=== PATIENT | male | born 1990 | race Hispanic/Latino ===

== ENCOUNTER 2021-06-17 18:23 | Emergency (ER) | payer OTHER ==
[~2021-06-17] VITALS: Ht 157.5 cm; Wt 70.3 kg
[2021-06-17] MEDS ORDERED: 0.9%NACL 1000ML 1,000 ML IV ONE ×2 (19:00→20:01)
[2021-06-17] MEDS ORDERED: METOCLOPRAMIDE 10 MG/2 ML VIAL IVP ONE (19:00)
[2021-06-17] MEDS ORDERED: DiphenhydrAMINE HCL 50 MG/ML VIAL IM ONE (19:00)
[2021-06-17] MEDS ORDERED: ACETAMINOPHEN 500 MG TABLET PO ONE (19:00)
[2021-06-17 19:17] LABS: BASOPHILS % (AUTO) 0.8 % (0.0-5.0); EOSINOPHILS % (AUTO) 1.9 % (0.0-8.0); HEMATOCRIT 45.6 % (42-54); LYMPHOCYTES % (AUTO) 35.5 % (21.0-51.0); MEAN CORPUSCULAR HEMOGLOBIN 31.8 pg (27.0-33.0); MEAN CORPUSCULAR HGB CONC 34.4 g/dL (32.0-36.0); MEAN CORPUSCULAR VOLUME 92.3 fL (79-99); MONOCYTES % (AUTO) 6.8 % (3.0-13.0); NEUTROPHILS % (AUTO) 54.5 % (40.0-77.0); PLATELET COUNT (AUTO) 232 K/uL (130-400); RED BLOOD CELL COUNT(AUTO) 4.94 MIL/uL (4.50-6.20); RED CELL DISTRIBUTION WIDTH 11.7 % (11.0-15.5); WHITE BLOOD COUNT (AUTO) 8.3 K/uL (4.8-10.8)
[2021-06-17 19:33] LABS: POTASSIUM 3.9 mmol/L (3.5-5.1)
[2021-06-17 19:37] LABS: ALBUMIN 4.3 g/dL (3.5-5.0); BILIRUBIN,TOTAL 0.4 mg/dL (0.2-1.0); TOTAL PROTEIN, SERUM 7.6 g/dL (6.0-8.3)
[2021-06-17] MEDS ORDERED: METO10TA41 PO (20:39)
[2021-06-17] MEDS ORDERED: DIPH25 PO (20:39)
[2021-06-17 20:45] VITALS: BP 118/76
== END 2021-06-17 20:49 | disposition home or self-care (01) ==
LOC: EDH 18:23
DX: G43.909 Migraine, unspecified, not intractable, without status migrainosus (principal); T43.225A Adverse effect of selective serotonin reuptake inhibitors, initial encounter; Z79.899 Other long term (current) drug therapy; Y92.89 Other specified places as the place of occurrence of the external cause
CPT/HCPCS: 36415; 80053; 85025; 96361; 96372; 96374; 99284; J1200; J2765; J7030

== ENCOUNTER 2023-04-29 17:39 | Emergency (ER) | payer OTHER ==
[~2023-04-29] VITALS: Ht 157.5 cm; Wt 68.9 kg
[~2023-04-29 17:39] MED LIST: DIPH-1242 PO; METO10TA41 PO
[2023-04-29 18:24] VITALS: BP 126/74; PULSE 54; RESP 16; O2SAT 100
== END 2023-04-29 19:32 | disposition left against medical advice (07) ==
LOC: EDH 17:39
DX: R51.9 Headache, unspecified (principal); Z53.21 Procedure and treatment not carried out due to patient leaving prior to being seen by health care provider
CPT/HCPCS: 99281